=== PATIENT | female | born 1990 ===

== ENCOUNTER 2018-08-15 06:51 | Observation (INO) | payer MEDICAID ==
[~2018-08-15] VITALS: Ht 154.9 cm; Wt 90.0 kg
--- NOTE | ~2018-08-15 | DS ---
PATIENT:JENNIFER RAINES :89 MEDICAL RECORD: [id number] DISCHARGE SUMMARY ADMISSION DATE: 08/15/18 DISCHARGE DATE: 08/16/18 DATE OF ADMISSION: 08/15/2018 DATE OF DISCHARGE: 08/16/2018 ADMISSION DIAGNOSES: 1. Abdominal pain. 2. Nausea and vomiting of . 3. Muscle spasm. DISCHARGE DIAGNOSES: 1. Abdominal pain. 2. Nausea and vomiting of . 3. Muscle spasm. 4. at 6 weeks gestation. PROCEDURE: None. ATTENDING: Jerald Blackwell MD HISTORY OF PRESENT ILLNESS AND INDICATION FOR HOSPITALIZATION: See the H&P. SUMMARY OF HOSPITALIZATION: The patient was admitted and evaluated. Due to the lack of ultrasound in [place], the patient was transferred and received her ultrasound, which proves intrauterine . On physical assessment, she was found to have left lower lumbar pain. The patient responded well to Flexeril. The patient will be discharged on Flexeril. The patient was tolerating a regular diet after receiving Zofran. A prescription of Zofran has also been given. Follow up in 2-3 weeks at [facility]. The patient has been screened and has a history of depression. The patient has no suicidal or homicidal intent or ideation. We discussed notifying clinic if condition worsens and plan to start medications after first trimester. TRANSINT:[id number] Voice Confirmation ID: [id number] DOCUMENT ID: [id number] JERALD BLACKWELL MD CC: [id number] DICTATION DATE: 08/16/18 1027 AIRPLANE INSPECTOR: 08/16/18 2326 DIS IN 08/16/18 [facility] [address] [place] [address]
--- NOTE | 2018-08-15 06:40 | NUR ---
RECEIVED FROM AMBULANCE TO 1273. PT. C/O LT. LOWER ABD. PAIN THAT RADIATES TO BACK WHICH SHE RATES A 7 OF 10 ON PAIN SCALE. PT. GUARDING ABD. WHEN WALKING. ASSISTED TO CHANGE INTO GOWN AND INTO BED. PT. RELATES THAT SHE HAS BEEN IN [facility] SINCE 1800 YESTERDAY WITHOUT "ANYTHING FOR PAIN OR NAUSEA AND ALSO NOTHING TO DRINK." RELATES THAT HER PAIN STARTED ON FRIDAY INTERMITTENTLY BUT HAS PROGRESSIVELY GOTTEN WORSE. STATES SHE HAS ALSO HAD SPOTTING WITH THE PAIN. HAS HAD NAUSEA SINCE YESTERDAY. LMP WAS APRIL 21 ALTHOUGH SHE REPORTS VERY IRREG. PERIODS. [id number]. DENIES ANY COMPLICATIONS WITH OTHER PREGNANCIES.
[2018-08-15 06:50] VITALS: BP 137/75
--- NOTE | 2018-08-15 06:56 | NUR ---
U/S TECH NOTIFIED OF PT ARRIVAL ON UNIT AND NEED FOR STAT U/S
--- NOTE | 2018-08-15 07:02 | NUR ---
US HERE FOR SCAN.
--- NOTE | 2018-08-15 07:04 | NUR ---
DR. BLACKWELL CALLED AND INFORMED US IN PROGRESS. INFORMED MD THAT PT. IS IN PAIN AND ALSO C/O NAUSEA. STATES TO CALL [facility] TO ALERT OR OF PROBABLE NEED FOR STAT CASE.
--- NOTE | 2018-08-15 07:05 | NUR ---
MIXER OPERATOR HELPER HOT METAL CALLED AND INFORMED OF DR. BLACKWELL REQUEST TO ALERT OR OF PROBABLE STAT CASE.
--- NOTE | 2018-08-15 07:09 | NUR ---
POC EXPLAINED TO PT. INFORMED IV WAS GOING TO BE STARTED.
--- NOTE | 2018-08-15 07:29 | NUR ---
SUPERINTENDENT GAS DISTRIBUTION RECALLED AND INFORMED THAT DR. BLACKWELL WAS ON WAY AND US DID NOT SEE ECTOPIC .
--- NOTE | 2018-08-15 08:10 | NUR ---
Dr. Perez in room and speaking with patient regarding plan of care. MD assessment completed. Dr. Perez states he will enter orders for pt. IVF LR continues to infuse on pump at 125 ml/hr.
--- NOTE | 2018-08-15 09:00 | NUR ---
Pt able to eat frosted flakes, and some milk. Able to keep breakfast down. Pt denies all needs at this time. Sr up x 2, call light and phone within reach.
--- NOTE | 2018-08-15 09:46 | NUR ---
Zofran 4 mg IV adm. Emesis bags provided for pt. Pt denies all other needs at this time. SR up x 2, call light and phone within reach.
--- NOTE | 2018-08-15 09:50 | NUR ---
Admission assessment completed. Plan of care explained to pt regarding care, and medication administrations. See EMAR for all meds adm by this RN. Pt wants to get up to the bathroom to void, assisted up to BR, gait slow and steady. Pt voids unmeasured amount without difficulty. Back to bed. SR up x2, call light and phone within reach.
[2018-08-15 09:58] VITALS: Ht 154.9 cm; Wt 90.0 kg
[2018-08-15] MEDS ORDERED: PRENAVITE1 TAB PO (09:58)
--- NOTE | 2018-08-15 10:51 | NUR ---
Flexeril 10 mg one po given. Warm blanket provided for back for comfort. Pt denies all other needs at this time. Srup x2, call light and phone within reach.
--- NOTE | 2018-08-15 12:00 | NUR ---
Dietary serves regular diet for lunch. Pt denies all other needs at this time.
--- NOTE | 2018-08-15 14:20 | NUR ---
Pt reports she is "a little nauseated", requests Zofran. Zofran 4 mg adm IV. Alcohol prep pads provided to pt as well for relief of nausea. Abdomen continues to palpate soft. Pt reports she is passing gas. Denies all other needs at this time.
--- NOTE | 2018-08-15 14:22 | NUR ---
Pt reports she was able to eat approx 25% of regular lunch, pt has had no vomiting as of yet. Miralax administered in 200 ml's water without ice per pt's request.
--- NOTE | 2018-08-15 14:48 | NUR ---
Second LR 1000 ml up and infusing at 125 ml/hr per order.
--- NOTE | 2018-08-15 17:53 | NUR ---
PT UP TO BATHROOM, VOIDED. SHE REPORTS SHE WAS UNABLE TO EAT HER MEAL DUE TO NAUSEA, OFFERED CRACKERS, PT REFUSED. FLEXERIL GIVEN. PT SITTING UP IN BED WATCHING TV. SIGNIFICANT OTHER AT BEDSIDE. PT DENIES ANY FURTHER NEEDS AT THIS TIME.
--- NOTE | 2018-08-15 19:00 | NUR ---
Report given to 7 p shift.
--- NOTE | 2018-08-15 19:16 | NUR ---
REC'D PT LAYING IN SEMI FOWLERS POSITION CONVERSING ON PHONE. DENIES NEEDS. BED IN LOW POSITION WITH UPPER SIDE RAILS RAISED X2. CL AND PHONE WITHIN REACH. WILL CONTINUE TO MONITOR AND ASSIST PRN.
[2018-08-15 20:10] VITALS: BP 111/55
[2018-08-15 20:40] VITALS: BP 11/55; BP 111/55
--- NOTE | 2018-08-15 20:45 | NUR ---
awake and alert and laying in bed.
--- NOTE | 2018-08-15 21:20 | NUR ---
SHIFT ASSESSMENT COMPLETED PER FLOWSHEET. PAIN /, LEFT SIDED MID BACK PAIN DESCRIBED AT ACHING. REPORTS THAT PAIN IS IMPROVED SINCE RECEIVING FLEXERIL AND DENIES NEED FOR ADDITIONAL INTERVENTION. DISCUSSED WITH PT RECEIVING FLEXERIL AT 1749 WAITING FOR 6-8 HOURS PRIOR TO RECEIVING AGAIN, PT STATES THAT SHE WILL ASK FOR IT DURING THE NIGHT PRN. C/O NAUSEA, ZOFRAN GIVEN PER ORDER AND REQUEST. PIV TO RIGHT WRIST INFUSING WITHOUT DIFFICULTY, NO S/S OF INFILTRATION NOTED. CONCERNS VOICED REGARDING AND FHT. EDUCATED THAT SHE IS TOO EARLY GESTATION FOR FHT TO BE PRESENT, VERBALIZES UNDERSTANDING. PT REPORTS THAT SHE DID ATTEMPT TO HAVE BM AND FEELS URGE BUT STATES SHE IS UNABLE TO GO, MIRALAX GIVEN MIXED IN APPLE JUICE. EDUCATED ON INCREASING PO FLUIDS ESPECIALLY WITH MIRALAX AND MIRALAX WORKS BY DRAWING FLUID INTO COLON TO SOFTEN STOOL. VERBALIZES UNDERSTANDING. ICE WATER PROVIDED. DENIES ADDITIONAL NEEDS. BED IN LOW POSITION WITH UPPER SIDE RAILS RAISED X2. CALL LIGHT AND PHONE WITHIN REACH. WILL CONTINUE TO MONITOR AND ASSIST PRN.
--- NOTE | 2018-08-15 22:37 | NUR ---
NEW BAG LR HUNG BY Cinthia MONTENEGRO LPN TO CONTINUE TO INFUSE AT 125 MLS/HR TO RIGHT WRIST PIV.
--- NOTE | 2018-08-15 23:59 | NUR ---
ROUNDS MADE. PT LAYING ON RIGHT SIDE RESTING WITH EYES CLOSED. RESPIRATIONS REGULAR AND UNLABORED, NO S/S OF DISTRESS NOTED. BED IN LOW POSITION WITH UPPER SIDE RAILS RAISED X2. CALL LIGHT AND PHONE WITHIN REACH. WILL CONTINUE TO MONITOR AND ASSIST PRN.
--- NOTE | 2018-08-16 02:15 | NUR ---
SITTING UP IN BED CONVERSING ON ROOM PHONE. REPORTS THAT SHE IS FEELING BETTER AND DENIES NEEDS AT THIS TIME. BED IN LOW POSITION WITH UPPER SIDE RAILS RAISED X2. CALL LIGHT AND PHONE WITHIN REACH. WILL CONTINUE TO MONITOR AND ASSIST PRN.
--- NOTE | 2018-08-16 02:38 | NUR ---
SCHEDULED TORADOL GIVEN PER EMAR, PAIN 08/28. REPORTS THAT SHE HASN'T VOIDED SINCE GOING TO BED BEFORE AMBULATING IN [place]. ENCOURAGED TO VOID, UP TO BATHROOM, VOIDED 500 MLS LIGHT BLUE TINGED URINE IN HAT. NO VAGINAL DISCHARGE/BLEEDING NOTED. BACK TO BED, SCD'S BACK ON BLE. REQUESTS JUS, C/O PAIN 09/28. GIVEN PER REQUEST. SODA PROVIDED. DENIES ADDITIONAL NEEDS AND HEADACHE. BED IN LOW POSITION WITH UPPER SIDE RAILS RAISED X2. CALL LIGHT AND PHONE WITHIN REACH. WILL CONTINUE TO MONITOR AND ASSIST PRN.
[2018-08-16 03:43] VITALS: BP 120/64
--- NOTE | 2018-08-16 03:43 | NUR ---
VSS. DENIES PAIN. RN REMAINS AT BEDSIDE TO PERFORM ADULT ADMISSION HISTORY.
--- NOTE | 2018-08-16 05:03 | NUR ---
REPORTS H/O DEPRESSION TO RN DURING ADULT HISTORY ASSESSMENT. REPORTS THAT SHE WAS PRESCRIBED 150 MG PO WELLBUTRIN DAILY BY HER DOCTOR BUT STATES THAT SHE QUIT TAKING MEDICATION IN 07/07 D/T "IT MADE ME FEEL MORE DEPRESSED." REPORTS THAT SHE HAS PREVIOUSLY HAD THOUGHTS OF SUICIDE BUT DOES NOT CURRENTLY HAVE ANY THOUGHTS OF SUICIDE OR SELF HARM. DENIES HAVING PLAN FOR SUICIDE/SELF HARM. REPORTS THAT SHE SEES A THERAPIST WEEKLY AND THERAPIST IS AWARE THAT SHE IS NO LONGER TAKING WELLBUTRIN. STATES THAT FOR HER SPEAKING WITH THERAPIST IS MORE HELPFUL.
--- NOTE | 2018-08-16 05:26 | NUR ---
REQUESTED TO SPEAK WITH DIRECTOR PRINT WHEN SHE WAKES UP. SPOKE WITH DAVID, BOILER COVERER HELPER REGARDING THIS REQUEST. PER DAVID SHE WAS UNSURE HOW TO CONTACT A DIRECTOR PRINT TO CONTACT ICU. SPOKE WITH STEFFI LEVY IN ICU AND CONTACT INFORMATION REC'D FOR FATHER BROWN GEORGE ([phone]).
--- NOTE | 2018-08-16 05:54 | NUR ---
DR. BLACKWELL NOTIFIED OF PT REPORTS OF DEPRESSION AND H/O SUICIDAL THOUGHTS WELL BEING PRESCRIBED WELLBUTRIN BUT NOT CURRENTLY TAKING.
--- NOTE | 2018-08-16 06:22 | NUR ---
RESTING WITH EYES CLOSED LAYING ON RIGHT SIDE. RESPIRATIONS REGULAR AND UNLABORED, NO S/S OF DISTRESS NOTED. DENIES PAIN AND NEEDS. NEW BAG LR HUNG TO CONTINUE TO INFUSE TO RIGHT WRIST PIV PER ORDER. BED IN LOW POSITION WITH UPPER SIDE RAILS RAISED X2. CALL LIGHT AND PHONE WITHIN REACH. WILL CONTINUE TO MONITOR AND ASSIST PRN.
--- NOTE | 2018-08-16 07:05 | NUR ---
REPORT TO DAY SHIFT.
[2018-08-16 08:20] VITALS: BP 110/58
--- NOTE | 2018-08-16 08:20 | NUR ---
AM ASSESSMENT COMPLETED, SEE FLOWSHEET. PT REPORTS CONTINUED NAUSEA, WITHOUT VOMITING. PT HAS DRANK CRANBERRY JUICE FOR BREAKFAST, STATES "I WILL TRY AND EAT IN A MINUTE". PT REPORTS CRAMPING TO LOWER LEFT ABDOMEN, STATES "IT HAS GOTTEN BETTER, BUT STILL HURTS A LITTLE". PT REPORTS SHE DID HAVE A SOLID BM LAST NIGHT AROUND 9 PM, STATES "IT WAS HARD". PT HAS REGULAR BREAKFAST TRAY ON BEDSIDE TABLE. DENIES OTHER NEEDS AT THIS TIME. SEE EMAR FOR ALL MEDS ADM BY THIS RN. SR UP X2, CALL LIGHT AND PHONE WITHIN REACH. PT ALONE THIS AM.
--- NOTE | 2018-08-16 08:45 | NUR ---
INFORMED PT ATTEMPT MADE TO CONTACT FATHER BROWN GEORGE, AT [phone], AND PH # STATES NUMBER HAS BEEN CHANGED OR DISCONNECTED. PT STATES "IT'S OK, I'LL FIND ONE LATER".
--- NOTE | 2018-08-16 09:00 | NUR ---
TO PT'S ROOM, PT IS SITTING UP IN THE BED, TALKING ON THE TELEPHONE. WARM BLANKET PROVIDED FOR COMFORT TO PT'S BACK. FLEXERIL 10 MG ONE PO GIVEN, SEE EMAR FOR ALL MEDS ADM BY THIS RN. PT HAS EATEN 40 % OF REGULAR BREAKFAST. DENIES ALL OTHER NEEDS. SRUP X2, CALL LIGHT AND PHONE WITHIN REACH.
--- NOTE | 2018-08-16 09:20 | NUR ---
DR. BLACKWELL CALLS TO UNIT AND STATES HE WILL BE AROUND SHORTLY FOR ROUNDS.
--- NOTE | 2018-08-16 10:20 | NUR ---
DR. BLACKWELL ON UNIT, ROUNDS MADE. MD WILL DISCHARGE PT HOME TO RETURN TO [facility] TO SEE DR. BLACKWELL IN 2-3 WEEKS.
--- NOTE | 2018-08-16 10:45 | NUR ---
SANJAY MEEHAN RN TO ROOM, IVF'S STOPPED AND IV DC'D WITH CATH INTACT. PT CLEMENTE WELL.
--- NOTE | 2018-08-16 11:40 | NUR ---
DISCHARGE INSTRUCTIONS EXPLAINED TO PT, WITH COPIES PROVIDED FOR HER. APPT CARD PROVIDED TO PT. PRESCRIPTIONS FOR ZOFRAN, AND FLEXERIL GIVEN TO PT. PT DENIES QUESTIONS. PT WISHES TO TAKE A SHOWER WHILE AWAITING FOR HER RIDE TO COME AND TAKE HER HOME. CLEAN LINENS PROVIDED, ALONG WITH SHAMPOO, AND TOOTHBRUSH/PASTE/HAIRBRUSH. PT DENIES NEEDING ANYTHING ELSE AT THIS TIME.
--- NOTE | 2018-08-16 13:45 | NUR ---
PT'S MOTHER/FAMILY ARRIVES TO LABOR AND DELIVERY, TO TAKE PATIENT HOME.
--- NOTE | 2018-08-16 14:00 | NUR ---
PT AMBULATORY OFF UNIT IN STABLE CONDITION WITH HER MOTHER, AND FAMILY MEMBERS.
== END 2018-08-16 14:00 | disposition home or self-care (01) ==
LOC: D.LDO 06:51 → D.LD 06:53 → OBSVTIME 23:22 → D.LDO 23:22 → D.LD 08-16 14:00
PROVIDERS: ADMIT Obstetrics & Gynecology; ATTEND Obstetrics & Gynecology
DX: O21.8 Other vomiting complicating pregnancy (principal); Z3A.01 Less than 8 weeks gestation of pregnancy; O26.891 Other specified pregnancy related conditions, first trimester; M54.5 Low back pain; K59.00 Constipation, unspecified